=== PATIENT | female | born 1985 | race Caucasian/White ===

== ENCOUNTER 2019-04-27 21:35 | Inpatient (IN) | payer OTHER ==
[2019-04-27] MEDS ORDERED: Sodium Chloride 0.9% 10 ML Syringe FLUSH PRN (22:05)
[2019-04-27] MEDS ORDERED: Ondansetron 4 MG/2 ML SDV IVPUSH PRN (22:05)
[2019-04-27] MEDS ORDERED: Oxytocin/Lactated Ringers 10 UNIT/1,000 ML BAG IV SCH (22:15)
[2019-04-28] MEDS ORDERED: Lidocaine 1.5% with EPINEPHrine 1:200,000 5 ML Amp ONE
[2019-04-28] MEDS ORDERED: Bupivacaine 0.25% 10 ML SDV ONE ×2
[2019-04-28] MEDS: Lactated Ringers 1,000 ML IV SCH ×6 (03:54→17:14)
--- NOTE | 2019-04-28 07:21 | PCM.LDHP ---
L&D History of Present Illness - General Date of Service: 04/27/19 Admit Problem/Dx: Patient Status Order with Admit Dx/Problem 04/27/19 21:42 Patient Status [ADT] Routine Admission Diagnosis/Problem Admission Diagnosis/Problem Source of Information: Patient History Limitations: Reports: No Limitations - History of Present Illness Introduction:: Patient is a 33 y/o at 39 4/7 wks who presents with concerns or contractions. Started a few hours prior to presenting. No LOF or VB - Related Data Allergies/Adverse Reactions: Allergies Allergy/AdvReac Type Severity Reaction Status Date / Time No Known Allergies Allergy Verified 04/27/19 21:42 Home Medications: Home Meds [id number]/Iron Fumarate/FA/DSS [ 19 Tablet] 1 each PO DAILY 04/27/19 [ History] Past Medical History - Past Health History Medical/Surgical History: Denies Medical/Surgical History [employer] History: Reports: : 1 Para: 0 LMP (Approximate): Social & Family History - Family History Family Medical History: Noncontributory - Tobacco Use Smoking Status *Q: Never Smoker Second Hand Smoke Exposure: No - Alcohol Use Alcohol Use History: No - Recreational Drug Use Recreational Drug Use: No H&P Review of Systems - Review of Systems: Review Of Systems: See Below General: Reports: No Symptoms Pulmonary: Reports: No Symptoms Cardiovascular: Reports: No Symptoms Gastrointestinal: Reports: Abdominal Pain Genitourinary: Reports: No Symptoms Musculoskeletal: Reports: No Symptoms Skin: Reports: No Symptoms Psychiatric: Reports: No Symptoms Neurological: Reports: No Symptoms L&D Exam - Exam Exam: See Below - Vital Signs Vital Signs: Last Vital Signs Temp 36.9 C 04/27/19 21:42 Pulse Resp 14 04/27/19 21:42 BP 143/80 H 04/27/19 21:42 Pulse Ox 100 04/27/19 21:42 Weight: 92.351 kg - OB Specific Contraction Intensity: Mild to Moderate Movement: Active Heart Tones: Present Heart Tones per Min: 115 Heart Rate (FHR) Variability: Moderate (6-25 bmp) Presentation: Vertex - Triana Score Triana Score Cervix Position: Midposition Triana Score Consistency: Soft Triana Score Effacement: 51-70% Triana Score Dilation: 1-2 cm Triana Score Infant's Station: -2 Triana Score Total: 7 - Exam General: Alert, Oriented, Cooperative Lungs: Clear to Auscultation, Normal Respiratory Effort Cardiovascular: Regular Rate, Regular Rhythm GI/Abdominal Exam: Soft, Non-Tender Genitourinary: Normal external exam Back Exam: Normal Inspection Extremities: Normal Inspection Skin: Warm, Dry, Intact - Patient Data Lab Results Last 24 hrs: Laboratory Results - last 24 hr 04/27/19 04/27/19 04/27/19 Range/Units 22:20 22:20 22:20 WBC 15.65 H (3.98-10.04) K/mm3 RBC 3.91 L (3.98-5.22) M/mm3 Hgb 12.5 (11.2-15.7) gm/dl Hct 36.4 (34.1-44.9) % MCV 93.1 (79.4-94.8) fl MCH 32.0 (25.6-32.2) pg MCHC 34.3 (32.2-35.5) g/dl RDW Std Deviation 42.9 (36.4-46.3) fL Plt Count 227 (182-369) K/mm3 MPV 11.1 (9.4-12.3) fl Neut % (Auto) 75.5 H (34.0-71.1) % Lymph % (Auto) 17.4 L (19.3-51.7) % [place] % (Auto) 6.3 (4.7-12.5) % Eos % (Auto) 0.3 L (0.7-5.8) Baso % (Auto) 0.2 (0.1-1.2) % Neut # (Auto) 11.82 H (1.56-6.13) K/mm3 Lymph # (Auto) 2.72 (1.18-3.74) K/mm3 [place] # (Auto) 0.99 H (0.24-0.36) K/mm3 Eos # (Auto) 0.05 (0.04-0.36) K/mm3 Baso # (Auto) 0.03 (0.01-0.08) K/mm3 Creatinine 0.9 (0.55-1.02) mg/dL Est Cr Clr Drug Dosing 81.50 mL/min Estimated GFR (MDRD) > 60 (>60) mL/min AST 23 (15-37) U/L ALT 28 (14-59) U/L Ur Random Creatinine (30.0-125.0) mg/dL U Random Total Protein (0.0-11.8) mg/dL Protein/Creatinin Ratio (0-149) mg/g 04/27/19 Range/Units 23:36 WBC (3.98-10.04) K/mm3 RBC (3.98-5.22) M/mm3 Hgb (11.2-15.7) gm/dl Hct (34.1-44.9) % MCV (79.4-94.8) fl MCH (25.6-32.2) pg MCHC (32.2-35.5) g/dl RDW Std Deviation (36.4-46.3) fL Plt Count (182-369) K/mm3 MPV (9.4-12.3) fl Neut % (Auto) (34.0-71.1) % Lymph % (Auto) (19.3-51.7) % [place] % (Auto) (4.7-12.5) % Eos % (Auto) (0.7-5.8) Baso % (Auto) (0.1-1.2) % Neut # (Auto) (1.56-6.13) K/mm3 Lymph # (Auto) (1.18-3.74) K/mm3 [place] # (Auto) (0.24-0.36) K/mm3 Eos # (Auto) (0.04-0.36) K/mm3 Baso # (Auto) (0.01-0.08) K/mm3 Creatinine (0.55-1.02) mg/dL Est Cr Clr Drug Dosing mL/min Estimated GFR (MDRD) (>60) mL/min AST (15-37) U/L ALT (14-59) U/L Ur Random Creatinine 133.2 H (30.0-125.0) mg/dL U Random Total Protein 10.7 (0.0-11.8) mg/dL Protein/Creatinin Ratio 80.3 (0-149) mg/g Result Diagrams: 04/27/19 22:20 04/27/19 22:20 - Problem List (1) 39 weeks gestation of SNOMED Code(s): 66111210 ICD Code: Z3A.39 - 39 WEEKS GESTATION OF Status: Acute Current Visit: Yes (2) Rh negative status during SNOMED Code(s): 989936940 ICD Code: O26.899 - OTH RELATED CONDITIONS, UNSPECIFIED TRIMESTER; Z67.91 - UNSPECIFIED BLOOD TYPE, RH NEGATIVE Status: Acute Current Visit: Yes Qualifiers: Trimester: third trimester Qualified Code(s): O26.893 - Other specified related conditions, third trimester; Z67.91 - Unspecified blood type, Rh negative Problem List Initiated/Reviewed/Updated: Yes Orders Last 24hrs: Active Orders 24 hr Category Date Time Status Patient Status [ADT] Routine ADT 04/27/19 21:42 Active Activity as Tolerated [RC] PFP Care 04/27/19 22:05 Active Communication Order [RC] ASDIRECTED Care 04/27/19 22:05 Active Heart Tones [RC] ASDIRECTED Care 04/27/19 22:06 Active Non Stress Test [RC] PER UNIT ROUTINE Care 04/27/19 21:42 Active Notify Provider [RC] PFP Care 04/27/19 22:05 Active Notify Provider [RC] PRN Care 04/27/19 22:05 Active Peripheral IV Care [RC] . DIRECTED Care 04/27/19 22:06 Active Vital Signs [RC] PER UNIT ROUTINE Care 04/27/19 21:42 Active Regular Diet [DIET] Diet 04/27/19 Breakfast Active BLOOD BANK HOLD SPECIMEN [BBK] Stat Lab 04/27/19 22:05 Ordered RAPID PLASMA REAGIN,RPR [CHEM] Routine Lab 04/27/19 22:20 Received Lactated Ringers [Ringers, Lactated] 1,000 ml Med 04/27/19 22:15 Active IV ASDIRECTED Nalbuphine [Nubain] Med 04/27/19 22:05 Active 10 mg IVPUSH Q2H PRN Ondansetron [Zofran] Med 04/27/19 22:05 Active 4 mg IVPUSH Q4H PRN Oxytocin/Lactated Ringers [Pitocin in LR 10 Units/1,000 Med 04/27/19 22:15 Active ML] 10 unit in 1,000 ml IV .CONTINUOUS Sodium Chloride 0.9% [Saline Flush] Med 04/27/19 22:05 Active 10 ml FLUSH ASDIRECTED PRN Electronic Heart Tones Ext w TOCO [WOMSER] Oth 04/27/19 22:05 Ordered Routine Electronic Heart Tones Internal [WOMSER] Per Unit Oth 04/27/19 22:05 Ordered Routine Peripheral IV Insertion Adult [OM.PC] Routine Oth 04/27/19 22:05 Ordered Resuscitation Status Routine Resus Stat 04/27/19 21:42 Ordered Medication Orders Lactated Ringer's (Ringers, Lactated) 1,000 mls @ 100 mls/hr IV ASDIRECTED TIFFANIE Last Admin: 04/28/19 03:54 Dose: 100 mls/hr Oxytocin/Lactated Ringer's (Pitocin In Lr 10 Units/1,000 Ml) 10 unit in 1,000 mls @ 100 mls/hr IV .CONTINUOUS TIFFANIE Nalbuphine HCl (Nubain) 10 mg IVPUSH Q2H PRN PRN Reason: Pain Ondansetron HCl (Zofran) 4 mg IVPUSH Q4H PRN PRN Reason: Nausea/Vomiting Sodium Chloride (Saline Flush) 10 ml FLUSH ASDIRECTED PRN PRN Reason: Keep Vein Open Assessment/Plan Comment:: 33 y/o at 39 4/7 wks presents in early labor * Few mild range BP's on admission. Will do preeclamptic labs in addition to routine Ob labs * GBS negative, no need for antibiotics * Pain control per patient preference * Anticipate
[2019-04-28] MEDS ORDERED: Oxytocin/Lactated Ringers 10 UNIT/1,000 ML BAG IV SCH (07:30)
[2019-04-28] MEDS: Nalbuphine 10 MG/ML Syringe IVPUSH PRN ×2 (08:15→10:30)
[2019-04-28] MEDS ORDERED: ePHEDrine 50 MG/ML SDV IVPUSH PRN (10:46)
[2019-04-28] MEDS ORDERED: fentaNYL/Bupivacaine/NS 2 MCG-0.125% 250 ML EPIDUR PRN (10:46)
[2019-04-28] MEDS ORDERED: diphenhydrAMINE 50 MG/ML SDV IVPUSH PRN (10:46)
--- NOTE | 2019-04-28 11:12 | PCM.PREANE ---
Preanesthetic Assessment - Anesthesia/Transfusion/Family Hx Anesthesia History: No Prior Anesthesia Family History of Anesthesia Reaction: No Transfusion History: No Prior Transfusion(s) Intubation History: Unknown - Review of Systems General: No Symptoms Pulmonary: No Symptoms Cardiovascular: No Symptoms Gastrointestinal: No Symptoms Neurological: No Symptoms Other: Reports: None, Easy Bruising - Physical Assessment NPO Status Date: 04/28/19 NPO Status Time: 09:00 Vital Signs: Last Vital Signs Temp 36.9 C 04/27/19 21:42 Pulse Resp 14 04/27/19 21:42 BP 143/80 H 04/27/19 21:42 Pulse Ox 100 04/27/19 21:42 Height: 1.65 m Weight: 92.351 kg ASA Class: 2 Mental Status: Alert & Oriented x3 Airway Class: Mallampati = 2 Dentition: Reports: Normal Dentition, Caries Thyro-Mental Finger Breadths: 3 Mouth Opening Finger Breadths: 3 ROM/Head Extension: Full Lungs: Clear to Auscultation, Normal Respiratory Effort Cardiovascular: Regular Rate, Regular Rhythm, No Murmurs - Lab Values: Laboratory Last Values WBC 15.65 K/mm3 (3.98-10.04) H 04/27/19 22:20 RBC 3.91 M/mm3 (3.98-5.22) L 04/27/19 22:20 Hgb 12.5 gm/dl (11.2-15.7) 04/27/19 22:20 Hct 36.4 % (34.1-44.9) 04/27/19 22:20 MCV 93.1 fl (79.4-94.8) 04/27/19 22:20 MCH 32.0 pg (25.6-32.2) 04/27/19 22:20 MCHC 34.3 g/dl (32.2-35.5) 04/27/19 22:20 RDW Std Deviation 42.9 fL (36.4-46.3) 04/27/19 22:20 Plt Count 227 K/mm3 (182-369) 04/27/19 22:20 MPV 11.1 fl (9.4-12.3) 04/27/19 22:20 Neut % (Auto) 75.5 % (34.0-71.1) H 04/27/19 22:20 Lymph % (Auto) 17.4 % (19.3-51.7) L 04/27/19 22:20 [place] % (Auto) 6.3 % (4.7-12.5) 04/27/19 22:20 Eos % (Auto) 0.3 (0.7-5.8) L 04/27/19 22:20 Baso % (Auto) 0.2 % (0.1-1.2) 04/27/19 22:20 Neut # (Auto) 11.82 K/mm3 (1.56-6.13) H 04/27/19 22:20 Lymph # (Auto) 2.72 K/mm3 (1.18-3.74) 04/27/19 22:20 [place] # (Auto) 0.99 K/mm3 (0.24-0.36) H 04/27/19 22:20 Eos # (Auto) 0.05 K/mm3 (0.04-0.36) 04/27/19 22:20 Baso # (Auto) 0.03 K/mm3 (0.01-0.08) 04/27/19 22:20 Creatinine 0.9 mg/dL (0.55-1.02) 04/27/19 22:20 Est Cr Clr Drug Dosing 81.50 mL/min 04/27/19 22:20 Estimated GFR (MDRD) > 60 mL/min (>60) 04/27/19 22:20 AST 23 U/L (15-37) 04/27/19 22:20 ALT 28 U/L (14-59) 04/27/19 22:20 Ur Random Creatinine 133.2 mg/dL (30.0-125.0) H 04/27/19 23:36 U Random Total Protein 10.7 mg/dL (0.0-11.8) 04/27/19 23:36 Protein/Creatinin Ratio 80.3 mg/g (0-149) 04/27/19 23:36 Above labs reviewed and noted and within acceptable ranges to proceed with epidural. 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: - Infectious Disease History Infectious Disease History: Reports: Chicken Pox - Past Surgical History GI Surgical History: Reports: None - SUBSTANCE USE Smoking Status *Q: Never Smoker Second Hand Smoke Exposure: No Recreational Drug Use History: No - HOME MEDS Home Medications: Home Meds XJM191/Iron Fumarate/FA/DSS [ 19 Tablet] 1 each PO DAILY 04/27/19 [ History] - CURRENT (IN HOUSE) MEDS Current Meds: Current Medications Diphenhydramine HCl (Benadryl) 25 mg IVPUSH Q6H PRN PRN Reason: pruritis Ephedrine Sulfate (Ephedrine Sulfate) 5 mg IVPUSH ASDIRECTED PRN PRN Reason: Hypotension Fentanyl (Sublimaze) 100 mcg EPIDUR Q3H PRN PRN Reason: Pain Fentanyl/Bupivacaine HCl (Fentanyl/Bupivacaine/Ns 2 Mcg-0.125% 250 Ml) 250 ml EPIDUR CONTINUOUS PRN PRN Reason: Pain Lactated Ringer's (Ringers, Lactated) 1,000 mls @ 100 mls/hr IV ASDIRECTED TIFFANIE Last Admin: 04/28/19 10:13 Dose: 500 mls/hr Oxytocin/Lactated Ringer's (Pitocin In Lr 10 Units/1,000 Ml) 10 unit in 1,000 mls @ 12 mls/hr IV TITRATE TIFFANIE; Protocol Last Titration: 04/28/19 09:00 Dose: 6 munits/min, 36 mls/hr Nalbuphine HCl (Nubain) 10 mg IVPUSH Q2H PRN PRN Reason: Pain Last Admin: 04/28/19 10:30 Dose: 5 mg Ondansetron HCl (Zofran) 4 mg IVPUSH Q4H PRN PRN Reason: Nausea/Vomiting Sodium Chloride (Saline Flush) 10 ml FLUSH ASDIRECTED PRN PRN Reason: Keep Vein Open Discontinued Medications Oxytocin/Lactated Ringer's (Pitocin In Lr 10 Units/1,000 Ml) 10 unit in 1,000 mls @ 100 mls/hr IV .CONTINUOUS TIFFANIE
[2019-04-28] MEDS: fentaNYL 100 MCG/2 ML SDV EPIDUR PRN ×2 (11:26→15:40)
--- NOTE | 2019-04-28 12:27 | PCM.PNLD ---
Labor Progress Note - VS & Meds Vital Signs: Last Vital Signs Temp 36.9 C 04/27/19 21:42 Pulse Resp 14 04/27/19 21:42 BP 143/80 H 04/27/19 21:42 Pulse Ox 100 04/27/19 21:42 Active Medications: Current Medications Diphenhydramine HCl (Benadryl) 25 mg IVPUSH Q6H PRN PRN Reason: pruritis Ephedrine Sulfate (Ephedrine Sulfate) 5 mg IVPUSH ASDIRECTED PRN PRN Reason: Hypotension Fentanyl (Sublimaze) 100 mcg EPIDUR Q3H PRN PRN Reason: Pain Last Admin: 04/28/19 11:26 Dose: 100 mcg Fentanyl/Bupivacaine HCl (Fentanyl/Bupivacaine/Ns 2 Mcg-0.125% 250 Ml) 250 ml EPIDUR CONTINUOUS PRN PRN Reason: Pain Lactated Ringer's (Ringers, Lactated) 1,000 mls @ 100 mls/hr IV ASDIRECTED TIFFANIE Last Admin: 04/28/19 11:29 Dose: 500 mls/hr Oxytocin/Lactated Ringer's (Pitocin In Lr 10 Units/1,000 Ml) 10 unit in 1,000 mls @ 12 mls/hr IV TITRATE TIFFANIE; Protocol Last Titration: 04/28/19 09:00 Dose: 6 munits/min, 36 mls/hr Nalbuphine HCl (Nubain) 10 mg IVPUSH Q2H PRN PRN Reason: Pain Last Admin: 04/28/19 10:30 Dose: 5 mg Ondansetron HCl (Zofran) 4 mg IVPUSH Q4H PRN PRN Reason: Nausea/Vomiting Sodium Chloride (Saline Flush) 10 ml FLUSH ASDIRECTED PRN PRN Reason: Keep Vein Open Discontinued Medications Oxytocin/Lactated Ringer's (Pitocin In Lr 10 Units/1,000 Ml) 10 unit in 1,000 mls @ 100 mls/hr IV .CONTINUOUS TIFFANIE - Uterine Contractions Uterine Monitoring Mode: External [place] Contraction Intensity: Mild to Moderate - Monitoring Monitor Mode: External Ultrasound Heart Rate (FHR) Baseline: 115 Heart Rate (FHR) Variability: Moderate (6-25 bmp) Accelerations: Present, 15x15 Decelerations: None Strip Review: Category I - Vaginal Exam Dilation (cm): 1-2 Effacement (Percent): 80 Station: -1 Cervical Position: Midposition - Labor Progress (Free Text) Labor Progress: Doing well. Contractions have spaced more recently. Reviewed options and will begin augmentation. [place] bulb placed. Will start pitocin. Will reassess again in a few hours
--- NOTE | 2019-04-28 12:30 | PCM.PNLD ---
Labor Progress Note - VS & Meds Vital Signs: Last Vital Signs Temp 36.9 C 04/27/19 21:42 Pulse Resp 14 04/27/19 21:42 BP 143/80 H 04/27/19 21:42 Pulse Ox 100 04/27/19 21:42 Active Medications: Current Medications Diphenhydramine HCl (Benadryl) 25 mg IVPUSH Q6H PRN PRN Reason: pruritis Ephedrine Sulfate (Ephedrine Sulfate) 5 mg IVPUSH ASDIRECTED PRN PRN Reason: Hypotension Fentanyl (Sublimaze) 100 mcg EPIDUR Q3H PRN PRN Reason: Pain Last Admin: 04/28/19 11:26 Dose: 100 mcg Fentanyl/Bupivacaine HCl (Fentanyl/Bupivacaine/Ns 2 Mcg-0.125% 250 Ml) 250 ml EPIDUR CONTINUOUS PRN PRN Reason: Pain Lactated Ringer's (Ringers, Lactated) 1,000 mls @ 100 mls/hr IV ASDIRECTED TIFFANIE Last Admin: 04/28/19 11:29 Dose: 500 mls/hr Oxytocin/Lactated Ringer's (Pitocin In Lr 10 Units/1,000 Ml) 10 unit in 1,000 mls @ 12 mls/hr IV TITRATE TIFFANIE; Protocol Last Titration: 04/28/19 09:00 Dose: 6 munits/min, 36 mls/hr Nalbuphine HCl (Nubain) 10 mg IVPUSH Q2H PRN PRN Reason: Pain Last Admin: 04/28/19 10:30 Dose: 5 mg Ondansetron HCl (Zofran) 4 mg IVPUSH Q4H PRN PRN Reason: Nausea/Vomiting Sodium Chloride (Saline Flush) 10 ml FLUSH ASDIRECTED PRN PRN Reason: Keep Vein Open Discontinued Medications Oxytocin/Lactated Ringer's (Pitocin In Lr 10 Units/1,000 Ml) 10 unit in 1,000 mls @ 100 mls/hr IV .CONTINUOUS TIFFANIE - Uterine Contractions Uterine Monitoring Mode: External [place] Contraction Intensity: Moderate to Strong - Monitoring Monitor Mode: External Ultrasound Heart Rate (FHR) Baseline: 110 Heart Rate (FHR) Variability: Moderate (6-25 bmp) Accelerations: Absent Decelerations: None, Early Strip Review: Category I - Vaginal Exam Dilation (cm): 4-5 Effacement (Percent): 80 Station: -1 Cervical Position: Midposition - Labor Progress (Free Text) Labor Progress: Patient doing well. Just received epidural. AROM performed with release of clear fluid. Pitocin at 4. Continue present management
--- NOTE | 2019-04-28 17:45 | PCM.PNLD ---
Labor Progress Note - VS & Meds Vital Signs: Last Vital Signs Temp 36.9 C 04/27/19 21:42 Pulse Resp 14 04/27/19 21:42 BP 143/80 H 04/27/19 21:42 Pulse Ox 100 04/27/19 21:42 Active Medications: Current Medications Diphenhydramine HCl (Benadryl) 25 mg IVPUSH Q6H PRN PRN Reason: pruritis Ephedrine Sulfate (Ephedrine Sulfate) 5 mg IVPUSH ASDIRECTED PRN PRN Reason: Hypotension Fentanyl (Sublimaze) 100 mcg EPIDUR Q3H PRN PRN Reason: Pain Last Admin: 04/28/19 15:40 Dose: 100 mcg Fentanyl/Bupivacaine HCl (Fentanyl/Bupivacaine/Ns 2 Mcg-0.125% 250 Ml) 250 ml EPIDUR CONTINUOUS PRN PRN Reason: Pain Lactated Ringer's (Ringers, Lactated) 1,000 mls @ 100 mls/hr IV ASDIRECTED TIFFANIE Last Admin: 04/28/19 17:14 Dose: 100 mls/hr Oxytocin/Lactated Ringer's (Pitocin In Lr 10 Units/1,000 Ml) 10 unit in 1,000 mls @ 12 mls/hr IV TITRATE TIFFANIE; Protocol Last Titration: 04/28/19 09:00 Dose: 6 munits/min, 36 mls/hr Nalbuphine HCl (Nubain) 10 mg IVPUSH Q2H PRN PRN Reason: Pain Last Admin: 04/28/19 10:30 Dose: 5 mg Ondansetron HCl (Zofran) 4 mg IVPUSH Q4H PRN PRN Reason: Nausea/Vomiting Last Admin: 04/28/19 17:37 Dose: 4 mg Sodium Chloride (Saline Flush) 10 ml FLUSH ASDIRECTED PRN PRN Reason: Keep Vein Open Discontinued Medications Oxytocin/Lactated Ringer's (Pitocin In Lr 10 Units/1,000 Ml) 10 unit in 1,000 mls @ 100 mls/hr IV .CONTINUOUS TIFFANIE - Uterine Contractions Uterine Monitoring Mode: External [place] Contraction Intensity: Moderate to Strong - Monitoring Monitor Mode: External Ultrasound Heart Rate (FHR) Baseline: 115 Heart Rate (FHR) Variability: Moderate (6-25 bmp) Accelerations: Absent Decelerations: Early Strip Review: Category I - Vaginal Exam Dilation (cm): 7 Effacement (Percent): 90 Station: -1 Cervical Position: Midposition - Labor Progress (Free Text) Labor Progress: Patient had to have epidural replaced. Now feeling more comfortable. Pitocin currently off as patient with a few late decelerations. IUPC placed to allow better monitoring of contractions. Will defer further pitocin augmentation for now. Can add in later if needed
--- NOTE | 2019-04-28 21:50 | PCM.DEL ---
L & D Note - General Info Date of Service: 04/28/19 - Delivery Note Labor: Augmented by ARM, Augmented by Oxytocin Cervical Ripening Method: Balloon Device Delivery Outcome: Livebirth Delivery Method: Spontaneous Vaginal Delivery-Single Delivery Mode: Vacuum Extraction Presentation: Right Occiput Posterior (ROP) Nuchal Cord: Present (x2) Anesthesia Type: Epidural Amniotic Fluid Description: Clear Episiotomy Type: None Laceration: 2nd Degree, Perineal Suture type: Vicryl Suture size: 2-0 Placenta: Intact, Spontaneous Cord: 3 Vessels Estimated Blood Loss: 200 : Bulb Syringe, Stimulated, Warmed, [place] Used, Warmer Used Delivery Comments (Free Text/Narrative):: Patient found to be complete and began pushing. After pushing for about 2 hours the head was on the perineum and repetitive, deep variables into the 60-70's were noted with contractions. Given these findings recommendations were for assisted delivery. Patient agreed. head in ROP presentation. The mushroom cup was placed at 2131without difficulty with care to avoid the vaginal side santos. Subsequent vacuum assisted vaginal delivery with pushing at 2132 over one contraction. Total pressure applied 550 mmHg. Total pop offs : 0 Suction was removed following delivery of the head. Tight nuchal cord x2 present and not able to be reduced. With gentle downward traction the shoulders and body delivered. placed on maternal abdomen. The umbilical cord was clamped and cut and the infant was taken to warmer for inspection. Inspection of the perineum following delivery with a 2nd degree laceration which was repaired with a 2-0 vicryl in the typical fashion. Vacuum Extractor Progress Note - Alternative Labor Strategies Considered Alternative Labor Strategies Considered:: Reports: Yes Strategies Considered:: Reports: Contraction Intensity Adequate, Position Changes Used to Facilitate Rotation & Descent, Empty Bladder Indications Considered:: Reports: Yes Indications:: Reports: Suspicion of Immediate or Potential Compromise Time Out:: Reports: Yes - Patient Prepared Patient Prepared:: Reports: Yes Informed Consent:: Reports: Yes, Verbal Risks: Reports: Yes Risks Include:: Reports: Laceration, Shoulder Dystocia, Maternal Injury, Other ( injury) Anesthesia/Analgesia Adequate:: Reports: Yes - Probability of Success High Probability of Success:: Reports: Yes Weight Estimated:: Reports: AGA Patient Diabetic:: Reports: No Pelvis Adequate:: Reports: Yes Position:: ROP Asynclitic:: Reports: No Station:: Outlet - Application Time Maximum Application Time & Number of Pop-Offs Predetermined:: Reports: Yes Maximum Pressure Maintained in [place] (cm Hg):: 550 Total Application Time (min): *max=20min: 1 Number of Times Cup Disengaged:: 0 Type of Vacuum Used:: Reports: Cup: Mushroom type Vacuum Extraction: Successful - Exit Strategy Exit strategy available:: Reports: Yes and resuscitation teams readily available:: Reports: Yes - General Info Date of Service: 04/28/19 - Patient Data Vitals - Most Recent: Last Vital Signs Temp 36.9 C 04/27/19 21:42 Pulse Resp 14 04/27/19 21:42 BP 143/80 H 04/27/19 21:42 Pulse Ox 100 04/27/19 21:42 Weight - Most Recent: 92.351 kg - Problem List & Annotations (1) 39 weeks gestation of SNOMED Code(s): 94912802 Code(s): Z3A.39 - 39 WEEKS GESTATION OF Status: Acute Current Visit: Yes (2) Rh negative status during SNOMED Code(s): 435250874 Code(s): O26.899 - OTH RELATED CONDITIONS, UNSPECIFIED TRIMESTER; Z67.91 - UNSPECIFIED BLOOD TYPE, RH NEGATIVE Status: Acute Current Visit: Yes Qualifiers: Trimester: third trimester Qualified Code(s): O26.893 - Other specified related conditions, third trimester; Z67.91 - Unspecified blood type, Rh negative (3) Vacuum-assisted vaginal delivery SNOMED Code(s): 01366445012061736 Code(s): Z37.9 - OUTCOME OF DELIVERY, UNSPECIFIED Status: Acute Current Visit: Yes - Problem List Review Problem List Initiated/Reviewed/Updated: Yes - My Orders Last 24 Hours: My Active Orders 04/27/19 21:42 Patient Status [ADT] Routine Non Stress Test [RC] PER UNIT ROUTINE Vital Signs [RC] PER UNIT ROUTINE Resuscitation Status Routine 04/27/19 22:05 Activity as Tolerated [RC] PFP Communication Order [RC] ASDIRECTED Notify Provider [RC] PFP Notify Provider [RC] PRN BLOOD BANK HOLD SPECIMEN [BBK] Stat Nalbuphine [Nubain] 10 mg IVPUSH Q2H PRN Ondansetron [Zofran] 4 mg IVPUSH Q4H PRN Sodium Chloride 0.9% [Saline Flush] 10 ml FLUSH ASDIRECTED PRN Electronic Heart Tones Ext w TOCO [WOMSER] Routine Electronic Heart Tones Internal [WOMSER] Per Unit Routine Peripheral IV Insertion Adult [OM.PC] Routine 04/27/19 22:06 Heart Tones [RC] ASDIRECTED Peripheral IV Care [RC] . DIRECTED 04/27/19 22:15 Lactated Ringers [Ringers, Lactated] 1,000 ml IV ASDIRECTED 04/27/19 22:20 RAPID PLASMA REAGIN,RPR [CHEM] Routine 04/28/19 07:30 Oxytocin/Lactated Ringers [Pitocin in LR 10 Units/1,000 ML] 10 unit in 1,000 ml IV TITRATE - Assessment Assessment:: 33 y/o G1 now P1001 PPD#0 from [facility] at 39 5/7 wks - Plan Plan:: * Routine cares * Breast feeding * Discharge home in 2 days
[2019-04-28] MEDS ORDERED: Acetaminophen 325 MG Tab PO PRN (23:34)
[2019-04-28] MEDS ORDERED: Benzocaine/Menthol 20%-0.5% Spray 56 GM Canister TOP PRN (23:34)
[2019-04-28] MEDS ORDERED: Docusate Sodium 100 MG Cap PO PRN (23:34)
[2019-04-29] MEDS: Witch Hazel Medicated Pads 40/Jar TOP PRN (01:29)
[2019-04-29] MEDS: Ibuprofen 600 MG Tab PO PRN ×3 (02:32→18:50)
--- NOTE | 2019-04-29 08:08 | PCM.PNPP ---
- General Info Date of Service: 04/29/19 Functional Status: Reports: Pain Controlled, Tolerating Diet, Ambulating, Urinating - Review of Systems General: Reports: No Symptoms Pulmonary: Reports: No Symptoms Cardiovascular: Reports: No Symptoms Gastrointestinal: Reports: No Symptoms Genitourinary: Reports: No Symptoms Musculoskeletal: Reports: No Symptoms Neurological: Reports: No Symptoms - Patient Data Vital Signs - Most Recent: Last Vital Signs Temp 36.6 C 04/29/19 04:00 Pulse 71 04/29/19 04:00 Resp 15 04/29/19 04:00 BP 101/53 L 04/29/19 04:00 Pulse Ox 98 04/29/19 04:00 Weight - Most Recent: 92.351 kg I&O - Last 24 Hours: Intake & Output 04/28/19 04/29/19 04/29/19 22:59 06:59 14:59 Intake Total 1000 Balance 1000 Lab Results - Last 24 Hours: Laboratory Results - last 24 hr 04/27/19 Range/Units 22:20 RPR Non-reactive (NONREACTIVE) Med Orders - Current: Current Medications Acetaminophen (Tylenol) 650 mg PO Q4H PRN PRN Reason: mild pain or fever Benzocaine/Menthol (Dermoplast Pain Relief [place]) 0 gm TOP ASDIRECTED PRN PRN Reason: Perineal Comfort Measure Last Admin: 04/29/19 01:29 Dose: 1 can Docusate Sodium (Colace) 100 mg PO BID PRN PRN Reason: Constipation Ibuprofen (Motrin) 600 mg PO Q6H PRN PRN Reason: Mild pain or fever Last Admin: 04/29/19 02:32 Dose: 600 mg Witch Meredith (Tucks) 1 pad TOP ASDIRECTED PRN PRN Reason: Perineal Comfort Measure Last Admin: 04/29/19 01:29 Dose: 1 cap Discontinued Medications Diphenhydramine HCl (Benadryl) 25 mg IVPUSH Q6H PRN PRN Reason: pruritis Ephedrine Sulfate (Ephedrine Sulfate) 5 mg IVPUSH ASDIRECTED PRN PRN Reason: Hypotension Fentanyl (Sublimaze) 100 mcg EPIDUR Q3H PRN PRN Reason: Pain Last Admin: 04/28/19 15:40 Dose: 100 mcg Fentanyl/Bupivacaine HCl (Fentanyl/Bupivacaine/Ns 2 Mcg-0.125% 250 Ml) 250 ml EPIDUR CONTINUOUS PRN PRN Reason: Pain Lactated Ringer's (Ringers, Lactated) 1,000 mls @ 100 mls/hr IV ASDIRECTED TIFFANIE Last Admin: 04/28/19 17:14 Dose: 100 mls/hr Oxytocin/Lactated Ringer's (Pitocin In Lr 10 Units/1,000 Ml) 10 unit in 1,000 mls @ 100 mls/hr IV .CONTINUOUS TIFFANIE Oxytocin/Lactated Ringer's (Pitocin In Lr 10 Units/1,000 Ml) 10 unit in 1,000 mls @ 12 mls/hr IV TITRATE TIFFANIE; Protocol Last Titration: 04/28/19 09:00 Dose: 6 munits/min, 36 mls/hr Nalbuphine HCl (Nubain) 10 mg IVPUSH Q2H PRN PRN Reason: Pain Last Admin: 04/28/19 10:30 Dose: 5 mg Ondansetron HCl (Zofran) 4 mg IVPUSH Q4H PRN PRN Reason: Nausea/Vomiting Last Admin: 04/28/19 17:37 Dose: 4 mg Sodium Chloride (Saline Flush) 10 ml FLUSH ASDIRECTED PRN PRN Reason: Keep Vein Open - Interaction Disposition, : [place] in Room with Family Interaction: Holding Feeding: Attempted ; Nursed Fair/Poor Support Person: Significant Other - Recovery Exam Fundal Tone: Firm Fundal Level: 1 Fingerbreadths Below Umbilicus Fundal Placement: Midline Lochia Amount: Small Lochia Color: Rubra/Red Perineum Description: Intact, Minimal Bruising/Swelling Bladder Status: Voiding Urinary Elimination: Voided - Exam General: Alert, Oriented, Cooperative GI/Abdominal Exam: Soft, Non-Tender Extremities: Normal Inspection Skin: Warm, Dry, Intact - Problem List & Annotations (1) 39 weeks gestation of SNOMED Code(s): 68127371 Code(s): Z3A.39 - 39 WEEKS GESTATION OF Status: Acute Current Visit: Yes (2) Rh negative status during SNOMED Code(s): 830816902 Code(s): O26.899 - OTH RELATED CONDITIONS, UNSPECIFIED TRIMESTER; Z67.91 - UNSPECIFIED BLOOD TYPE, RH NEGATIVE Status: Acute Current Visit: Yes Qualifiers: Trimester: third trimester Qualified Code(s): O26.893 - Other specified related conditions, third trimester; Z67.91 - Unspecified blood type, Rh negative (3) Vacuum-assisted vaginal delivery SNOMED Code(s): 64578736914372877 Code(s): Z37.9 - OUTCOME OF DELIVERY, UNSPECIFIED Status: Acute Current Visit: Yes - Problem List Review Problem List Initiated/Reviewed/Updated: Yes - My Orders Last 24 Hours: My Active Orders 04/28/19 23:34 Activity as Tolerated [RC] PER UNIT ROUTINE Vital Signs [RC] Q4HR Acetaminophen [Tylenol] 650 mg PO Q4H PRN Benzocaine/Menthol [Dermoplast Pain Relief [place]] See Dose Instructions TOP ASDIRECTED PRN Docusate Sodium [Colace] 100 mg PO BID PRN Ibuprofen [Motrin] 600 mg PO Q6H PRN Witch Meredith [Tucks] 1 pad TOP ASDIRECTED PRN Assess Lochia [WOMSER] Per Unit Routine Assess Uterine Involution [WOMSER] Per Unit Routine Breast Pump [WOMSER] Per Unit Routine Heat Therapy [OM.PC] PRN Ice Therapy [OM.PC] Per Unit Routine Perineal Care [OM.PC] Per Unit Routine Peripheral IV Discontinue [OM.PC] Routine Sitz Bath [OM.PC] Per Unit Routine 04/29/19 06:00 RHOGAM, [RHIG WORKUP, ] [BBK] Routine 04/29/19 23:34 Heat Therapy [OM.PC] PRN - Assessment Assessment:: 33 y/o G1 now P1001 PPD#1 from [facility] at 39 5/7 wks - Plan Plan:: * Routine cares * Breast feeding * Discharge home tomorrow
--- NOTE | 2019-04-29 09:03 | PCM48HPAN ---
Post Anesthesia Note - EVALUATION WITHIN 48HRS OF ANESTHETIC Vital Signs in Normal Range: Yes Patient Participated in Evaluation: Yes Respiratory Function Stable: Yes Airway Patent: Yes Cardiovascular Function Stable: Yes Hydration Status Stable: Yes Pain Control Satisfactory: Yes Nausea and Vomiting Control Satisfactory: Yes Mental Status Recovered: Yes Vital Signs: Last Vital Signs Temp 36.6 C 04/29/19 04:00 Pulse 71 04/29/19 04:00 Resp 15 04/29/19 04:00 BP 101/53 L 04/29/19 04:00 Pulse Ox 98 04/29/19 04:00 - COMMENTS/OBSERVATIONS Free Text/Narrative:: Merary has been up ambulating with ease. Reports her first epidural did not work well. Her second epidural worked well and she had good pain control. Merary does report some back soreness at the insertions site. Minimal bruising present with assessment.
--- NOTE | 2019-04-30 08:17 | PCM.DCSUM1 ---
Discharge Summary - Hospital Course Free Text/Narrative:: [facility] LIVE L/D Delivery Note Patient Name: PALOMA NATH Date of : 89 Patient Status: Inpatient Attending Provider: Isaura Mckeon Date: 04/28/19 21:49 Initialization Date: 04/28/19 21:49 L & D Note - General Info Date of Service: 04/28/19 - Delivery Note Labor: Augmented by ARM, Augmented by Oxytocin Cervical Ripening Method: Balloon Device Delivery Outcome: Livebirth Delivery Method: Spontaneous Vaginal Delivery-Single Infant Delivery Mode: Vacuum Extraction Presentation: Right Occiput Posterior (ROP) Nuchal Cord: Present (x2) Anesthesia Type: Epidural Amniotic Fluid Description: Clear Episiotomy Type: None Laceration: 2nd Degree, Perineal Suture type: Vicryl Suture size: 2-0 Placenta: Intact, Spontaneous Cord: 3 Vessels Estimated Blood Loss: 200 : Bulb Syringe, Stimulated, Warmed, [place] Used, Warmer Used Delivery Comments (Free Text/Narrative):: Patient found to be complete and began pushing. After pushing for about 2 hours the head was on the perineum and repetitive, deep variables into the 60-70's were noted with contractions. Given these findings recommendations were for assisted delivery. Patient agreed. head in ROP presentation. The mushroom cup was placed at 2131without difficulty with care to avoid the vaginal side santos. Subsequent vacuum assisted vaginal delivery with pushing at 2132 over one contraction. Total pressure applied 550 mmHg. Total pop offs : 0 Suction was removed following delivery of the head. Tight nuchal cord x2 present and not able to be reduced. With gentle downward traction the shoulders and body delivered. placed on maternal abdomen. The umbilical cord was clamped and cut and the was taken to warmer for inspection. Inspection of the perineum following delivery with a 2nd degree laceration which was repaired with a 2-0 vicryl in the typical fashion. Vacuum Extractor Progress Note - Alternative Labor Strategies Considered Alternative Labor Strategies Considered:: Reports: Yes Strategies Considered:: Reports: Contraction Intensity Adequate, Position Changes Used to Facilitate Rotation & Descent, Empty Bladder Indications Considered:: Reports: Yes Indications:: Reports: Suspicion of Immediate or Potential Compromise Time Out:: Reports: Yes - Patient Prepared Patient Prepared:: Reports: Yes Informed Consent:: Reports: Yes, Verbal Risks: Reports: Yes Risks Include:: Reports: Laceration, Shoulder Dystocia, Maternal Injury, Other ( injury) Anesthesia/Analgesia Adequate:: Reports: Yes - Probability of Success High Probability of Success:: Reports: Yes Weight Estimated:: Reports: AGA Patient Diabetic:: Reports: No Pelvis Adequate:: Reports: Yes Position:: ROP Asynclitic:: Reports: No Station:: Outlet - Application Time Maximum Application Time & Number of Pop-Offs Predetermined:: Reports: Yes Maximum Pressure Maintained in Green Zone (cm Hg):: 550 Total Application Time (min): *max=20min: 1 Number of Times Cup Disengaged:: 0 Type of Vacuum Used:: Reports: Cup: Mushroom type Vacuum Extraction: Successful - Exit Strategy Exit strategy available:: Reports: Yes and resuscitation teams readily available:: Reports: Yes - General Info Date of Service: 04/28/19 - Patient Data Vitals - Most Recent: Last Vital Signs Temp 36.9 C 04/27/19 21:42 Pulse Resp 14 04/27/19 21:42 BP 143/80 H 04/27/19 21:42 Pulse Ox 100 04/27/19 21:42 Weight - Most Recent: 92.351 kg - Problem List & Annotations (1) 39 weeks gestation of SNOMED Code(s): 25927364 Code(s): Z3A.39 - 39 WEEKS GESTATION OF Status: Acute Current Visit: Yes (2) Rh negative status during SNOMED Code(s): 796865469 Code(s): O26.899 - OTH RELATED CONDITIONS, UNSPECIFIED TRIMESTER; Z67.91 - UNSPECIFIED BLOOD TYPE, RH NEGATIVE Status: Acute Current Visit: Yes Qualifiers: Trimester: third trimester Qualified Code(s): O26.893 - Other specified related conditions, third trimester; Z67.91 - Unspecified blood type, Rh negative (3) Vacuum-assisted vaginal delivery SNOMED Code(s): 57757266709589823 Code(s): Z37.9 - OUTCOME OF DELIVERY, UNSPECIFIED Status: Acute Current Visit: Yes - Problem List Review Problem List Initiated/Reviewed/Updated: Yes - My Orders Last 24 Hours: My Active Orders 04/27/19 21:42 Patient Status [ADT] Routine Non Stress Test [RC] PER UNIT ROUTINE Vital Signs [RC] PER UNIT ROUTINE Resuscitation Status Routine 04/27/19 22:05 Activity as Tolerated [RC] PFP Communication Order [RC] ASDIRECTED Notify Provider [RC] PFP Notify Provider [RC] PRN BLOOD BANK HOLD SPECIMEN [BBK] Stat Nalbuphine [Nubain] 10 mg IVPUSH Q2H PRN Ondansetron [Zofran] 4 mg IVPUSH Q4H PRN Sodium Chloride 0.9% [Saline Flush] 10 ml FLUSH ASDIRECTED PRN Electronic Heart Tones Ext w TOCO [WOMSER] Routine Electronic Heart Tones Internal [WOMSER] Per Unit Routine Peripheral IV Insertion Adult [OM.PC] Routine 04/27/19 22:06 Heart Tones [RC] ASDIRECTED Peripheral IV Care [RC] . DIRECTED 04/27/19 22:15 Lactated Ringers [Ringers, Lactated] 1,000 ml IV ASDIRECTED 04/27/19 22:20 RAPID PLASMA REAGIN,RPR [CHEM] Routine 04/28/19 07:30 Oxytocin/Lactated Ringers [Pitocin in LR 10 Units/1,000 ML] 10 unit in 1,000 ml IV TITRATE - Assessment Assessment:: 33 y/o G1 now P1001 PPD#0 from [facility] at 39 5/7 wks - Plan Plan:: * Routine cares * Breast feeding * Discharge home in 2 days HPI Initial Comments: [facility] LIVE L/D Delivery Note Patient Name: PALOMA NATH Date of : 89 Patient Status: Inpatient Attending Provider: Isaura Mckeon Date: 04/28/19 21:49 Initialization Date: 04/28/19 21:49 L & D Note - General Info Date of Service: 04/28/19 - Delivery Note Labor: Augmented by ARM, Augmented by Oxytocin Cervical Ripening Method: Balloon Device Delivery Outcome: Livebirth Delivery Method: Spontaneous Vaginal Delivery-Single Delivery Mode: Vacuum Extraction Presentation: Right Occiput Posterior (ROP) Nuchal Cord: Present (x2) Anesthesia Type: Epidural Amniotic Fluid Description: Clear Episiotomy Type: None Laceration: 2nd Degree, Perineal Suture type: Vicryl Suture size: 2-0 Placenta: Intact, Spontaneous Cord: 3 Vessels Estimated Blood Loss: 200 : Bulb Syringe, Stimulated, Warmed, [place] Used, Warmer Used Delivery Comments (Free Text/Narrative):: Patient found to be complete and began pushing. After pushing for about 2 hours the head was on the perineum and repetitive, deep variables into the 60-70's were noted with contractions. Given these findings recommendations were for assisted delivery. Patient agreed. head in ROP presentation. The mushroom cup was placed at 2131without difficulty with care to avoid the vaginal side santos. Subsequent vacuum assisted vaginal delivery with pushing at 2132 over one contraction. Total pressure applied 550 mmHg. Total pop offs : 0 Suction was removed following delivery of the head. Tight nuchal cord x2 present and not able to be reduced. With gentle downward traction the shoulders and body delivered. placed on maternal abdomen. The umbilical cord was clamped and cut and the was taken to warmer for inspection. Inspection of the perineum following delivery with a 2nd degree laceration which was repaired with a 2-0 vicryl in the typical fashion. Vacuum Extractor Progress Note - Alternative Labor Strategies Considered Alternative Labor Strategies Considered:: Reports: Yes Strategies Considered:: Reports: Contraction Intensity Adequate, Position Changes Used to Facilitate Rotation & Descent, Empty Bladder Indications Considered:: Reports: Yes Indications:: Reports: Suspicion of Immediate or Potential Compromise Time Out:: Reports: Yes - Patient Prepared Patient Prepared:: Reports: Yes Informed Consent:: Reports: Yes, Verbal Risks: Reports: Yes Risks Include:: Reports: Laceration, Shoulder Dystocia, Maternal Injury, Other ( injury) Anesthesia/Analgesia Adequate:: Reports: Yes - Probability of Success High Probability of Success:: Reports: Yes Weight Estimated:: Reports: AGA Patient Diabetic:: Reports: No Pelvis Adequate:: Reports: Yes Position:: ROP Asynclitic:: Reports: No Station:: Outlet - Application Time Maximum Application Time & Number of Pop-Offs Predetermined:: Reports: Yes Maximum Pressure Maintained in Green Zone (cm Hg):: 550 Total Application Time (min): *max=20min: 1 Number of Times Cup Disengaged:: 0 Type of Vacuum Used:: Reports: Cup: Mushroom type Vacuum Extraction: Successful - Exit Strategy Exit strategy available:: Reports: Yes and resuscitation teams readily available:: Reports: Yes - General Info Date of Service: 04/28/19 - Patient Data Vitals - Most Recent: Last Vital Signs Temp 36.9 C 04/27/19 21:42 Pulse Resp 14 04/27/19 21:42 BP 143/80 H 04/27/19 21:42 Pulse Ox 100 04/27/19 21:42 Weight - Most Recent: 92.351 kg - Problem List & Annotations (1) 39 weeks gestation of SNOMED Code(s): 76050417 Code(s): Z3A.39 - 39 WEEKS GESTATION OF Status: Acute Current Visit: Yes (2) Rh negative status during SNOMED Code(s): 208506994 Code(s): O26.899 - OTH RELATED CONDITIONS, UNSPECIFIED TRIMESTER; Z67.91 - UNSPECIFIED BLOOD TYPE, RH NEGATIVE Status: Acute Current Visit: Yes Qualifiers: Trimester: third trimester Qualified Code(s): O26.893 - Other specified related conditions, third trimester; Z67.91 - Unspecified blood type, Rh negative (3) Vacuum-assisted vaginal delivery SNOMED Code(s): 39868980644531560 Code(s): Z37.9 - OUTCOME OF DELIVERY, UNSPECIFIED Status: Acute Current Visit: Yes - Problem List Review Problem List Initiated/Reviewed/Updated: Yes - My Orders Last 24 Hours: My Active Orders 04/27/19 21:42 Patient Status [ADT] Routine Non Stress Test [RC] PER UNIT ROUTINE Vital Signs [RC] PER UNIT ROUTINE Resuscitation Status Routine 04/27/19 22:05 Activity as Tolerated [RC] PFP Communication Order [RC] ASDIRECTED Notify Provider [RC] PFP Notify Provider [RC] PRN BLOOD BANK HOLD SPECIMEN [BBK] Stat Nalbuphine [Nubain] 10 mg IVPUSH Q2H PRN Ondansetron [Zofran] 4 mg IVPUSH Q4H PRN Sodium Chloride 0.9% [Saline Flush] 10 ml FLUSH ASDIRECTED PRN Electronic Heart Tones Ext w TOCO [WOMSER] Routine Electronic Heart Tones Internal [WOMSER] Per Unit Routine Peripheral IV Insertion Adult [OM.PC] Routine 04/27/19 22:06 Heart Tones [RC] ASDIRECTED Peripheral IV Care [RC] . DIRECTED 04/27/19 22:15 Lactated Ringers [Ringers, Lactated] 1,000 ml IV ASDIRECTED 04/27/19 22:20 RAPID PLASMA REAGIN,RPR [CHEM] Routine 04/28/19 07:30 Oxytocin/Lactated Ringers [Pitocin in LR 10 Units/1,000 ML] 10 unit in 1,000 ml IV TITRATE - Assessment Assessment:: 33 y/o G1 now P1001 PPD#0 from [facility] at 39 5/7 wks - Plan Plan:: * Routine cares * Breast feeding * Discharge home in 2 days Brief History: [facility] LIVE . L/D Delivery Note. [facility] [id number]. Date of : Patient Status: Inpatient. Attending Provider: Isaura Mckeoncount Number : [id number]. Date: 04/28/19 21:49Initialization Date: 04/28/19 21:49. L & D Note. - General Info. Date of Service: 04/28/19. - Delivery Note. Labor: Augmented by ARM, Augmented by Oxytocin. Cervical Ripening Method: Balloon Device. Delivery Outcome: Livebirth. Delivery Method: Spontaneous Vaginal Delivery-Single. Delivery Mode: Vacuum Extraction. Presentation: Right Occiput Posterior (ROP). Nuchal Cord: Present (x2). Anesthesia Type: Epidural. Amniotic Fluid Description: Clear. Episiotomy Type : None. Laceration: 2nd Degree, Perineal. Suture type: Vicryl. Suture size: 2 -0. Placenta: Intact, Spontaneous. Cord: 3 Vessels. Estimated Blood Loss: 200. [place]: Bulb Syringe, Stimulated, Warmed, [place] Used, Warmer Used. Delivery Comments (Free Text/Narrative):: Patient found to be complete and began pushing. After pushing for about 2 hours the head was on the perineum and repetitive, deep variables into the 60-70's were noted with contractions. Given these findings recommendations were for assisted delivery. Patient agreed. head in ROP presentation. The mushroom cup was placed at 2131without difficulty with care to avoid the vaginal side santos. Subsequent vacuum assisted vaginal delivery with pushing at 2132 over one contraction. Total pressure applied 550 mmHg. Total pop offs : 0 Suction was removed following delivery of the head. Tight nuchal cord x2 present and not able to be reduced. With gentle downward traction the shoulders and body delivered. Infant placed on maternal abdomen. The umbilical cord was clamped and cut and the was taken to warmer for inspection. Inspection of the perineum following delivery with a 2nd degree laceration which was repaired with a 2-0 vicryl in the typical fashion. Vacuum Extractor Progress Note. - Alternative Labor Strategies Considered. Alternative Labor Strategies Considered:: Reports: Yes. Strategies Considered:: Reports: Contraction Intensity Adequate, Position Changes Used to Facilitate Rotation & Descent, Empty Bladder. Indications Considered:: Reports: Yes. Indications:: Reports: Suspicion of Immediate or Potential Compromise. Time Out:: Reports: Yes. - Patient Prepared. Patient Prepared:: Reports: Yes. Informed Consent:: Reports: Yes, Verbal. Risks: Reports: Yes. Risks Include:: Reports: Laceration , Shoulder Dystocia, Maternal Injury, Other ( injury). Anesthesia/ Analgesia Adequate:: Reports: Yes. - Probability of Success. High Probability of Success:: Reports: Yes. Weight Estimated:: Reports: AGA. Patient Diabetic:: Reports: No. Pelvis Adequate:: Reports: Yes. Position:: ROP. Asynclitic:: Reports: No. Station:: Outlet. - Application Time. Maximum Application Time & Number of Pop-Offs Predetermined:: Reports: Yes. Maximum Pressure Maintained in Green Zone (cm Hg):: 550. Total Application Time (min): *max=20min: 1. Number of Times Cup Disengaged:: 0. Type of Vacuum Used:: Reports: Cup: Mushroom type. Vacuum Extraction: Successful. - Exit Strategy. Exit strategy available:: Reports: Yes. and resuscitation teams readily available:: Reports: Yes. - General Info. Date of Service: 04/28/19. - Patient Data. Vitals - Most Recent: Last Vital Signs. Temp 36.9 C 21:42. Pulse. Resp 14 04/27/19 21:42. BP 143/80 H 04/27/19 21:42. Pulse Ox 100 04/27/19 21:42. Weight - Most Recent: 92.351 kg. - Problem List & Annotations. (1) 39 weeks gestation of . SNOMED Code(s): 45155681. Code(s): Z3A.39 - 39 WEEKS GESTATION OF Status: Acute Current Visit: Yes. (2) Rh negative status during . SNOMED Code(s): 809495354. Code(s): O26.899 - OTH RELATED CONDITIONS, UNSPECIFIED TRIMESTER; Z67.91 - UNSPECIFIED BLOOD TYPE, RH NEGATIVE Status: Acute Current Visit: Yes. Qualifiers: Trimester: third trimester Qualified Code(s) : O26.893 - Other specified related conditions, third trimester; Z67.91 - Unspecified blood type, Rh negative. (3) Vacuum-assisted vaginal delivery. SNOMED Code(s): 33567793052009648. Code(s): Z37.9 - OUTCOME OF DELIVERY, UNSPECIFIED Status: Acute Current Visit: Yes. - Problem List Review. Problem List Initiated/Reviewed/Updated: Yes. - My Orders. Last 24 Hours: My Active Orders. 04/27/19 21:42. Patient Status [ADT] Routine. Non Stress Test [RC] PER UNIT ROUTINE. Vital Signs [RC] PER UNIT ROUTINE. Resuscitation Status Routine. 04/27/19 22:05. Activity as Tolerated [RC] PFP. Communication Order [RC] ASDIRECTED. Notify Provider [RC] PFP. Notify Provider [RC] PRN. BLOOD BANK HOLD SPECIMEN [BBK] Stat. Nalbuphine [ Nubain] 10 mg IVPUSH Q2H PRN. Ondansetron [Zofran] 4 mg IVPUSH Q4H PRN. Sodium Chloride 0.9% [Saline Flush] 10 ml FLUSH ASDIRECTED PRN. Electronic Heart Tones Ext w TOCO [WOMSER] Routine. Electronic Heart Tones Internal [WOMSER] Per Unit Routine. Peripheral IV Insertion Adult [OM.PC] Routine. 04/27/19 22:06. Heart Tones [RC] ASDIRECTED. Peripheral IV Care [RC] . DIRECTED. 04/27/19 22:15. Lactated Ringers [Ringers, Lactated] 1 ,000 ml IV ASDIRECTED. 04/27/19 22:20. RAPID PLASMA REAGIN,RPR [CHEM] Routine. 04/28/19 07:30. Oxytocin/Lactated Ringers [Pitocin in LR 10 Units/1, 000 ML] 10 unit in 1,000 ml IV TITRATE. - Assessment. Assessment:: 33 y/o G1 now P1001 PPD#0 from [facility] at 39 5/7 wks. - Plan. Plan:: Routine cares. Breast feeding. Discharge home in 2 days Diagnosis: Stroke: No - Discharge Data Discharge Date: 04/30/19 Discharge Disposition: Home, Self-Care 01 Condition: Good - Referral to Home Health Primary Care Physician: Isaura Mckeon MD - Discharge Diagnosis/Problem(s) (1) Double nuchal cord SNOMED Code(s): 633416830 ICD Code: O69.1XX0 - LABOR AND DELIVERY COMP BY CORD AROUND NECK, W COMPRSN, UNSP Status: Acute Current Visit: Yes Qualifiers: Fetus number: single or unspecified fetus Qualified Code(s): O69.1XX0 - Labor and delivery complicated by cord around neck, with compression, not applicable or unspecified (2) Nuchal cord, delivered, current hospitalization SNOMED Code(s): 575219224, 105329001 ICD Code: O69.81X0 - LABOR AND DEL COMP BY CORD AROUND NECK, W/O COMPRSN, UNSP Status: Acute Current Visit: Yes (3) Second degree laceration of perineum, delivered, current hospitalization SNOMED Code(s): 139040895, 125840952 ICD Code: O70.1 - SECOND DEGREE PERINEAL LACERATION DURING DELIVERY Status : Acute Current Visit: Yes (4) 39 weeks gestation of SNOMED Code(s): 71609946 ICD Code: Z3A.39 - 39 WEEKS GESTATION OF Status: Acute Current Visit: Yes (5) Rh negative status during SNOMED Code(s): 899246435 ICD Code: O26.899 - OTH RELATED CONDITIONS, UNSPECIFIED TRIMESTER; Z67.91 - UNSPECIFIED BLOOD TYPE, RH NEGATIVE Status: Acute Current Visit: Yes Qualifiers: Trimester: third trimester Qualified Code(s): O26.893 - Other specified related conditions, third trimester; Z67.91 - Unspecified blood type, Rh negative (6) Vacuum-assisted vaginal delivery SNOMED Code(s): 19556076474657292 ICD Code: Z37.9 - OUTCOME OF DELIVERY, UNSPECIFIED Status: Acute Current Visit: Yes - Patient Summary/Data Complications: none Consults: none Hospital Course: uneventful - Patient Instructions Diet: Usual Diet as Tolerated Driving: Do Not Drive (x48 hrs) Showering/Bathing: May Shower Notify Provider of: Fever, Increased Pain, Swelling and Redness, Drainage, Nausea and/or Vomiting - Discharge Plan *PRESCRIPTION DRUG MONITORING PROGRAM REVIEWED*: Not Applicable *COPY OF PRESCRIPTION DRUG MONITORING REPORT IN PATIENT BORA: Not Applicable Home Medications: Home Meds [id number]/Iron Fumarate/FA/DSS [ 19 Tablet] 1 each PO DAILY 04/27/19 [ History] Acetaminophen [Tylenol] 650 mg PO Q6H PRN tablet 04/30/19 [Rx] Benzocaine/Menthol [Dermoplast Pain Relief [place]] 1 spray TOP ASDIRECTED PRN canister 04/30/19 [Rx] Docusate Sodium [Colace] 100 mg PO BID PRN cap 04/30/19 [Rx] Ibuprofen [Motrin] 600 mg PO Q6H PRN tablet 04/30/19 [Rx] Witch Meredith [Tucks] 1 pad TOP ASDIRECTED PRN pad 04/30/19 [Rx] Referrals: Isaura Mckeon MD [Primary Care Provider] - (3 weeks) - Discharge Summary/Plan Comment DC Time >30 min.: No - Patient Data Vitals - Most Recent: Last Vital Signs Temp 98.8 F 04/30/19 04:55 Pulse 62 04/30/19 04:55 Resp 15 04/30/19 04:55 BP 112/73 04/30/19 04:55 Pulse Ox 99 04/30/19 04:55 Weight - Most Recent: 203 lb 9.6 oz I&O - Last 24 hours: Intake & Output 04/29/19 04/30/19 04/30/19 22:59 06:59 14:59 Intake Total 180 Balance 180 Lab Results - Last 24 hrs: Laboratory Results - last 24 hr 04/29/19 Range/Units 06:00 Blood Type A NEGATIVE Gel Antibody Screen Negative Screen 1 ros/5 flds - neg RhIG Candidate? Yes Rhogam Indicated Yes, baby rh pos H Med Orders - Current: Current Medications Acetaminophen (Tylenol) 650 mg PO Q4H PRN PRN Reason: mild pain or fever Benzocaine/Menthol (Dermoplast Pain Relief [place]) 0 gm TOP ASDIRECTED PRN PRN Reason: Perineal Comfort Measure Last Admin: 04/29/19 01:29 Dose: 1 can Docusate Sodium (Colace) 100 mg PO BID PRN PRN Reason: Constipation Last Admin: 04/30/19 00:12 Dose: 100 mg Ibuprofen (Motrin) 600 mg PO Q6H PRN PRN Reason: Mild pain or fever Last Admin: 04/29/19 18:50 Dose: 600 mg Witch [place] (Tucks) 1 pad TOP ASDIRECTED PRN PRN Reason: Perineal Comfort Measure Last Admin: 04/29/19 01:29 Dose: 1 cap Discontinued Medications Bupivacaine HCl (Sensorcaine-Mpf 0.25%) 10 ml .ROUTE .STK-MED ONE Stop: 04/28/19 00:01 Bupivacaine HCl (Sensorcaine-Mpf 0.25%) 10 ml .ROUTE .STK-MED ONE Stop: 04/28/19 00:01 Diphenhydramine HCl (Benadryl) 25 mg IVPUSH Q6H PRN PRN Reason: pruritis Ephedrine Sulfate (Ephedrine Sulfate) 5 mg IVPUSH ASDIRECTED PRN PRN Reason: Hypotension Fentanyl (Sublimaze) 100 mcg EPIDUR Q3H PRN PRN Reason: Pain Last Admin: 04/28/19 15:40 Dose: 100 mcg Fentanyl/Bupivacaine HCl (Fentanyl/Bupivacaine/Ns 2 Mcg-0.125% 250 Ml) 250 ml EPIDUR CONTINUOUS PRN PRN Reason: Pain Lactated Ringer's (Ringers, Lactated) 1,000 mls @ 100 mls/hr IV ASDIRECTED TIFFANIE Last Admin: 04/28/19 17:14 Dose: 100 mls/hr Oxytocin/Lactated Ringer's (Pitocin In Lr 10 Units/1,000 Ml) 10 unit in 1,000 mls @ 100 mls/hr IV .CONTINUOUS TIFFANIE Oxytocin/Lactated Ringer's (Pitocin In Lr 10 Units/1,000 Ml) 10 unit in 1,000 mls @ 12 mls/hr IV TITRATE TIFFANIE; Protocol Last Titration: 04/28/19 09:00 Dose: 6 munits/min, 36 mls/hr Lidocaine/Epinephrine (Xylocaine-Mpf 1.5% W/Epinephrine 1:200,000) 5 ml .ROUTE .[facility]-MED ONE Stop: 04/28/19 00:01 Nalbuphine HCl (Nubain) 10 mg IVPUSH Q2H PRN PRN Reason: Pain Last Admin: 04/28/19 10:30 Dose: 5 mg Ondansetron HCl (Zofran) 4 mg IVPUSH Q4H PRN PRN Reason: Nausea/Vomiting Last Admin: 04/28/19 17:37 Dose: 4 mg Sodium Chloride (Saline Flush) 10 ml FLUSH ASDIRECTED PRN PRN Reason: Keep Vein Open
[2019-04-30] MEDS: Witch Hazel Medicated Pads 40/Jar TOP PRN (08:23)
[2019-04-30] MEDS: Ibuprofen 600 MG Tab PO PRN (08:24)
== END 2019-04-30 11:30 | disposition home or self-care (01) | DRG 807 ==
LOC: JD.OBCHECK 21:35 → JD.OB 21:39 → JD.OBCHECK 04-28 21:53 → JD.OB 04-28 21:54
PROVIDERS: ADMIT Obstetrics & Gynecology; ATTEND Obstetrics & Gynecology
PROC: 10D07Z6 Extraction of Products of Conception, Vacuum, Via Natural or Artificial Opening (ICD-10-PCS; principal; 2019-04-28)
PROC: 10907ZC Drainage of Amniotic Fluid, Therapeutic from Products of Conception, Via Natural or Artificial Opening (ICD-10-PCS; 2019-04-28)
PROC: 0KQM0ZZ Repair Perineum Muscle, Open Approach (ICD-10-PCS; 2019-04-28)
PROC: 3E0P7VZ Introduction of Hormone into Female Reproductive, Via Natural or Artificial Opening (ICD-10-PCS; 2019-04-28)
PROC: 3E0S3BZ Introduction of Anesthetic Agent into Epidural Space, Percutaneous Approach (ICD-10-PCS; 2019-04-28)
PROC: 10H07YZ Insertion of Other Device into Products of Conception, Via Natural or Artificial Opening (ICD-10-PCS; 2019-04-28)
DX: O69.1XX0 Labor and delivery complicated by cord around neck, with compression, not applicable or unspecified (principal); Z37.0 Single live birth; O70.1 Second degree perineal laceration during delivery; Z3A.39 39 weeks gestation of pregnancy; Z67.91 Unspecified blood type, Rh negative; O26.893 Other specified pregnancy related conditions, third trimester; Z79.899 Other long term (current) drug therapy; O76 Abnormality in fetal heart rate and rhythm complicating labor and delivery; Z23 Encounter for immunization
CPT/HCPCS: 01967; 36415; 51701; 51702; 59025; 59409; 82565; 82570; 84156; 84450; 84460; 85025; 85461; 86592; 86850; 86900; 86901; A9270-GY; J2300; J2405; J2590; J2790; J3010; J3490; J7120

== ENCOUNTER 2019-05-23 18:33 | Emergency (ER) | payer OTHER ==
[2019-05-23] MEDS ORDERED: cefTRIAXone 2 GM Vial IM ONE (20:38)
[2019-05-23] MEDS ORDERED: Lidocaine 1% 2 ML SDV INJECT ONE (20:38)
--- NOTE | 2019-05-23 20:47 | EDM.PDOC ---
ED HPI GENERAL MEDICAL PROBLEM - General Chief Complaint: Fever Stated Complaint: FEVER Time Seen by Provider: 05/23/19 20:05 Source of Information: Reports: Patient, RN Notes Reviewed History Limitations: Reports: No Limitations - History of Present Illness INITIAL COMMENTS - FREE TEXT/NARRATIVE: Patient is a 34-year-old female who presents to the ED for the evaluation of a fever. Patient states that she is 4 weeks , and been having increased pain in her breasts, but worse in the right breast. She notes that the tissue feels lumpy to her. She states that she developed a fever last night , and her temperature was as high as 105 F at home. She took this with a temporal thermometer. She states that she has been rotating Tylenol ibuprofen, her last dose ibuprofen was at 4:30 PM today. Patient still does have a minor temperature at time of triage, and it is 99.8 F. Patient states he feels hot, sweaty, flushed. She denies any cough shortness of breath, dysuria, urinary frequency or urgency. She notes that she is not having any other issues besides the fever and breast pain. She states she is breast-feeding, and she states that the baby does feed appropriately, and she feels as if she is emptying appropriately. Right Breast Pain Score (Numeric/FACES): 4 - Related Data Allergies Allergy/AdvReac Type Severity Reaction Status Date / Time No Known Allergies Allergy Verified 05/23/19 18:49 Home Meds: Home Meds [id number]/Iron Fumarate/FA/DSS [ 19 Tablet] 1 each PO DAILY 04/27/19 [ History] Acetaminophen [Tylenol] 650 mg PO Q6H PRN tablet 04/30/19 [Rx] Docusate Sodium [Colace] 100 mg PO BID PRN cap 04/30/19 [Rx] Ibuprofen [Motrin] 600 mg PO Q6H PRN tablet 04/30/19 [Rx] cephALEXin [Cephalexin] 500 mg PO QID #56 tablet 05/23/19 [Rx] Past Medical History Gastrointestinal History: Reports: Chronic Constipation FRUIT LOADER History: Reports: : 1 Para: 1 - Infectious Disease History Infectious Disease History: Reports: Chicken Pox Social & Family History - Family History Family Medical History: Noncontributory - Tobacco Use Smoking Status *Q: Never Smoker - Caffeine Use Caffeine Use: Reports: None - Recreational Drug Use Recreational Drug Use: No ED ROS ENT - Review of Systems Review Of Systems: See Below Constitutional: Reports: Fever, Chills Respiratory: Denies: Shortness of Breath, Cough Cardiovascular: Denies: Chest Pain GI/Abdominal: Denies: Abdominal Pain, Nausea, Vomiting : Denies: Dysuria, Frequency, Urgency Skin: Reports: Erythema (of R medial breast) Neurological: Denies: Headache ED EXAM, ENT - Physical Exam Exam: See Below Exam Limited By: No Limitations General Appearance: Alert, WD/WN, No Apparent Distress Eye Exam: Bilateral Eye: EOMI, Normal Inspection, PERRL Mouth/Throat: Normal Inspection, Normal Gums, Normal Lips, Normal Oropharynx, Normal Teeth Head: Atraumatic, Normocephalic Neck: Normal Inspection Respiratory/Chest: No Respiratory Distress, Lungs Clear, Normal Breath Sounds, No Accessory Muscle Use, Chest Non-Tender Cardiovascular: Normal Peripheral Pulses, Regular Rate, Rhythm, No Murmur GI/Abdominal: Normal Bowel Sounds, Soft, Non-Tender, No Distention, No Mass Extremities: Normal Inspection, Normal Capillary Refill Neurological: Alert, Oriented, Normal Cognition, No Motor/Sensory Deficits Psychiatric: Normal Affect, Normal Mood Skin: Warm, Dry, Intact, No Rash, Erythema (to medial R breast), Other (breast tissue feels full, there is mild redness and tenderness noted to both breasts medially.) Course - Vital Signs Last Recorded V/S: Last Vital Signs Temp 99.8 F 05/23/19 18:46 Pulse 86 05/23/19 18:46 Resp 16 05/23/19 18:46 BP 123/76 05/23/19 18:46 Pulse Ox 96 05/23/19 18:46 - Orders/Labs/Meds Meds: Medications Discontinued Medications Generic Name Dose Route Start Last Admin Trade Name Freq PRN Reason Stop Dose Admin Ceftriaxone Sodium 2 gm 05/23/19 20:38 Rocephin IM 05/23/19 20:39 ONETIME ONE Lidocaine HCl 2 ml 05/23/19 20:38 Lidocaine 1% INJECT 05/23/19 20:39 ONETIME ONE - Re-Assessments/Exams Free Text/Narrative Re-Assessment/Exam: 05/23/19 20:47 She presents to the ED for evaluation of a fever and breast tenderness. Patient does not have any other sick-like symptoms in any other body system.'s is likely that she is suffering from mastitis. Patient is given 1 injection of 2 g Rocephin in the ED, will be started on Keflex outpatient, and have her follow-up with her FRUIT LOADER by the end of the week for reevaluation. Departure - Departure Time of Disposition: 20:48 Disposition: Home, Self-Care 01 Condition: Fair Clinical Impression: Mastitis, - Discharge Information *PRESCRIPTION DRUG MONITORING PROGRAM REVIEWED*: No *COPY OF PRESCRIPTION DRUG MONITORING REPORT IN PATIENT BORA: No Prescriptions: cephALEXin [Cephalexin] 500 mg PO QID #56 tablet Instructions: Mastitis, [id number], and Mastitis Referrals: Isaura Mckeon MD [Primary Care Provider] - Additional Instructions: You were evaluated in the ER today regarding your fever and breast tenderness. It is likely that you are suffering from mastitis, which is inflammation and infection of the breast tissue. You were given a injection of Rocephin at today 's visit to help start fighting the infection, and you will be provided with cephalexin, 500 mg, 1 tab 4 times daily the next 14 days or told otherwise by your FRUIT [employer] provider. Please note that these antibiotics can take up to 48 hours to provide full benefit if you are not feeling much better by Thursday night, or morning, recommend that you seek care for reevaluation, and it is highly recommended that you follow-up with your FRUIT LOADER by the end of this week for a reevaluation to make sure that everything is resolving as expected. You may still take Tylenol/ibuprofen every 6 hours for pain relief you may still breast-feed while taking these antibiotics and Tylenol/ibuprofen. You may use hot packs to the area, this should help provide further pain relief. Also please try to keep her self well-hydrated during this time. Please return to the ER at any time if your symptoms change or worsen. Sepsis Event Note - Evaluation Sepsis Screening Result: No Definite Risk - Focused Exam Vital Signs: Vital Signs Temp Pulse Resp BP Pulse Ox 05/23/19 18:46 99.8 F 86 16 123/76 96 Date Exam was Performed: 05/23/19 Time Exam was Performed: 20:41
[2019-05-23] MEDS ORDERED: Lidocaine 1% 10 ML MDV IM ONE (21:00)
== END 2019-05-23 21:21 | disposition home or self-care (01) ==
LOC: JD.ED 18:33
DX: O91.22 Nonpurulent mastitis associated with the puerperium (principal)
CPT/HCPCS: 96372; 99283; J0696; J2001

== ENCOUNTER 2021-09-17 08:55 | Emergency (ER) | payer OTHER | END 2021-09-17 10:20 | disposition home or self-care (01) | LOC: JD.ED 08:55 | DX: O9A.213 Injury, poisoning and certain other consequences of external causes complicating pregnancy, third trimester (principal); S06.0X0A Concussion without loss of consciousness, initial encounter; Z3A.34 34 weeks gestation of pregnancy; Z79.899 Other long term (current) drug therapy; W01.10XA Fall on same level from slipping, tripping and stumbling with subsequent striking against unspecified object, initial encounter | CPT/HCPCS: 99283 ==

== ENCOUNTER 2021-10-22 18:34 | Inpatient (IN) | payer OTHER ==
[~2021-10-22 18:34] MED LIST: Bupivacaine 0.25% 10 ML SDV ONE
[2021-10-22] MEDS ORDERED: Nalbuphine HCl 10 MG/ 1ML Amp IVPUSH PRN (18:49)
[2021-10-22] MEDS ORDERED: Lidocaine 1% 50 ML MDV INJECT ONE (18:49)
[2021-10-22] MEDS ORDERED: Ondansetron 4 MG/2 ML SDV IVPUSH PRN (18:49)
[2021-10-22] MEDS ORDERED: Sodium Chloride 0.9% 10 ML Syringe FLUSH PRN (18:49)
[2021-10-22] MEDS ORDERED: Oxytocin/Lactated Ringers 10 UNIT/1,000 ML BAG IV SCH ×2 (19:00)
[2021-10-22] MEDS ORDERED: fentaNYL 100 MCG/2 ML SDV EPIDUR PRN (19:24)
[2021-10-22] MEDS ORDERED: ePHEDrine 50 MG/ML SDV IVPUSH PRN (19:24)
[2021-10-22] MEDS ORDERED: diphenhydrAMINE 50 MG/ML SDV IVPUSH PRN (19:24)
[2021-10-22] MEDS ORDERED: Bupivacaine/fentaNYL/NS 100 ML Bag EPIDUR PRN (19:24)
[2021-10-22] MEDS ORDERED: fentaNYL 100 MCG/2 ML SDV ONE (19:29)
[2021-10-22] MEDS: Lactated Ringers 1,000 ML IV SCH ×2 (19:32→19:33)
[2021-10-22] MEDS ORDERED: Sodium Chloride 0.9% 10 ML Syringe FLUSH SCH (21:00)
[2021-10-23] MEDS ORDERED: Witch Hazel Medicated Pads 40/Jar TOP PRN (00:12)
[2021-10-23] MEDS ORDERED: Benzocaine/Menthol 20%-0.5% Spray 78 GM Cannister TOP PRN (00:12)
[2021-10-23] MEDS ORDERED: Acetaminophen 325 MG Tab PO PRN (00:12)
[2021-10-23] MEDS ORDERED: Docusate Sodium 100 MG Cap PO PRN (00:12)
[2021-10-23] MEDS: Ibuprofen 600 MG Tab PO PRN ×2 (02:48→09:32)
[2021-10-24] MEDS: Ibuprofen 600 MG Tab PO PRN (04:48)
== END 2021-10-24 10:06 | disposition home or self-care (01) | DRG 807 ==
LOC: JD.OBCHECK 18:34 → JD.OB 18:38 → JD.OBCHECK 20:51 → JD.OB 20:52 → OBSVTOIN 23:51 → JD.OB 23:52
PROVIDERS: ADMIT Obstetrics & Gynecology; ATTEND Obstetrics & Gynecology
PROC: 10E0XZZ Delivery of Products of Conception, External Approach (ICD-10-PCS; principal; 2021-10-23)
PROC: 0HQ9XZZ Repair Perineum Skin, External Approach (ICD-10-PCS; 2021-10-23)
PROC: 3E0R3BZ Introduction of Anesthetic Agent into Spinal Canal, Percutaneous Approach (ICD-10-PCS; 2021-10-23)
PROC: 00HU33Z Insertion of Infusion Device into Spinal Canal, Percutaneous Approach (ICD-10-PCS; 2021-10-23)
PROC: 3E0334Z Introduction of Serum, Toxoid and Vaccine into Peripheral Vein, Percutaneous Approach (ICD-10-PCS; 2021-10-23)
DX: O99.62 Diseases of the digestive system complicating childbirth (principal); Z37.0 Single live birth; K59.09 Other constipation; O70.0 First degree perineal laceration during delivery; O69.81X0 Labor and delivery complicated by cord around neck, without compression, not applicable or unspecified; O26.893 Other specified pregnancy related conditions, third trimester; Z67.11 Type A blood, Rh negative; Z3A.39 39 weeks gestation of pregnancy
CPT/HCPCS: 01967; 36415; 51701; 59025; 59409; 85025; 85461; 86592; 86850; 86900; 86901; A9270-GY; J2590; J2790; J3010; J3490; J7120

== ENCOUNTER 2022-03-05 14:57 | Emergency (ER) | payer OTHER ==
[2022-03-05] MEDS ORDERED: Sodium Chloride 0.9% 10 ML Syringe FLUSH PRN ×2 (15:26→15:43)
[2022-03-05] MEDS ORDERED: Iopamidol 755 Mg/ML 100 ML Bottle IVPUSH ONE (15:43)
[2022-03-05] MEDS ORDERED: Sodium Chloride 0.9% 45 ML IV SCH (15:45)
[2022-03-05] MEDS ORDERED: Lactated Ringers 500 ML IV ONE (15:55)
[2022-03-05 17:13] LABS: ESTIMATED GFR 76 mL/min (>60)
[2022-03-05 22:42] LABS: CORONAVIRUS COVID-19 NAA NEGATIVE (NEGATIVE)
== END 2022-03-06 14:45 ==
LOC: JD.ED 14:57
DX: I31.39 Other pericardial effusion (noninflammatory) (principal); J90 Pleural effusion, not elsewhere classified; R00.0 Tachycardia, unspecified; J98.59 Other diseases of mediastinum, not elsewhere classified; Z79.899 Other long term (current) drug therapy; Z20.822 Contact with and (suspected) exposure to COVID-19
CPT/HCPCS: 0241U; 36415; 71045; 71275; 80053; 81001; 83605; 83880; 84443; 84484; 85025; 85610; 85730; 86850; 86900; 86901; 87040; 93005; 99285; J3490; J7120; Q9967